=== PATIENT | male | born 1945 | race Hispanic/Latino ===

== ENCOUNTER 2021-09-06 13:08 | Emergency (ER) | payer MEDICARE, OTHER ==
[~2021-09-06] VITALS: Ht 167.6 cm; Wt 77.1 kg
[2021-09-06 14:05] LABS: BASOPHILS % 0.4 % (0.0-1.0); EOSINOPHILS # (AUTO) 0.1 (0.0-0.4); EOSINOPHILS % 1.5 % (0.0-6.0); HEMATOCRIT 32.9 % (38.2-49.6); LYMPHOCYTES # (AUTO) 0.8 (1.0-3.2); MEAN CORPUSCULAR HEMOGLOBIN 32.4 pg (28-32); MEAN CORPUSCULAR HGB CONC 33.4 g/dL (31-35); MEAN CORPUSCULAR VOLUME 96.8 fL (81-99); MONOCYTES # (AUTO) 0.5 (0.2-0.8); MONOCYTES % 7.7 % (4.4-11.3); NEUTROPHILS # (AUTO) 5.4 (2.1-6.9); PLATELET COUNT 220 x10e3/uL (140-360); RED CELL DISTRIBUTION WIDTH 13.2 % (11.7-14.4)
[2021-09-06 14:25] LABS: ALBUMIN 3.5 g/dL (3.5-5.0); ALBUMIN/GLOBULIN RATIO 0.9 (0.8-2.0); CALCIUM 9.4 mg/dL (8.4-10.2); CREATININE, SERUM 1.2 mg/dL (0.72-1.25)
== END 2021-09-06 15:02 | disposition home or self-care (01) ==
LOC: ER 13:13
DX: R55 Syncope and collapse (principal); R42 Dizziness and giddiness; W01.0XXA Fall on same level from slipping, tripping and stumbling without subsequent striking against object, initial encounter; Y93.01 Activity, walking, marching and hiking; Y92.89 Other specified places as the place of occurrence of the external cause; E11.9 Type 2 diabetes mellitus without complications; R94.31 Abnormal electrocardiogram [ECG] [EKG]
CPT/HCPCS: 36415; 70450; 71045; 80053; 84484; 85025; 93005; 99284

== ENCOUNTER → 2022-01-15 | Outpatient (CLI) | payer OTHER | LOC: US 09:07 | PROVIDERS: ATTEND Internal Medicine Medical Oncology | DX: D64.9 Anemia, unspecified (principal) | CPT/HCPCS: 76700; 76856 ==

== ENCOUNTER 2024-07-27 12:16 | Observation (INO) | payer MEDICARE, OTHER ==
[~2024-07-27] VITALS: Ht 157.5 cm; Wt 81.6 kg
[2024-07-27 13:23] VITALS: TEMP 98.4
[2024-07-27 14:14] LABS: BASOPHILS % 0.6 % (0.0-1.0); EOSINOPHILS # (AUTO) 0.1 (0.0-0.4); EOSINOPHILS % 2.1 % (0.0-6.0); HEMATOCRIT 33.8 % (38.2-49.6); HEMOGLOBIN 11.6 g/dL (14.0-18.0); LYMPHOCYTES # (AUTO) 0.7 (1.0-3.2); LYMPHOCYTES % 11.6 % (18.0-39.1); MEAN CORPUSCULAR HEMOGLOBIN 32.5 pg (28-32); MEAN CORPUSCULAR HGB CONC 34.3 g/dL (31-35); MEAN CORPUSCULAR VOLUME 94.7 fL (81-99); MONOCYTES # (AUTO) 0.5 (0.2-0.8); MONOCYTES % 8.2 % (4.4-11.3); NEUTROPHILS # (AUTO) 4.8 (2.1-6.9); NEUTROPHILS % 77.2 % (38.7-80.0); PLATELET COUNT 165 x10e3/uL (140-360); RED BLOOD COUNT 3.57 x10e6/uL (4.3-5.7); RED CELL DISTRIBUTION WIDTH 13.3 % (11.7-14.4); WHITE BLOOD COUNT 6.22 x10e3/uL (4.8-10.8)
[2024-07-27 14:44] LABS: ALBUMIN 3.7 g/dL (3.5-5.0); ALBUMIN/GLOBULIN RATIO 1.3 (0.8-2.0); ANION GAP 16.2 mmol/L (8-16); BILIRUBIN,TOTAL 0.3 mg/dL (0.2-1.2); CALCIUM 8.9 mg/dL (8.4-10.2); CLARITY,URINE CLEAR (CLEAR); COLOR,URINE YELLOW (YELLOW); CREATININE, SERUM 1.71 mg/dL (0.72-1.25); TOTAL PROTEIN 6.6 g/dL (6.5-8.1)
[2024-07-27 14:45] LABS: BILIRUBIN,URINE NEGATIVE (NEGATIVE); GLUCOSE, URINE 500 (NEGATIVE); KETONES,URINE NEGATIVE (NEGATIVE); LEUKOCYTE ESTERASE ,URINE NEGATIVE (NEGATIVE); NITRITE,URINE NEGATIVE (NEGATIVE); PH,URINE 5.5 (5 - 7); PROTEIN,URINE DIPSTICK >=300 (NEGATIVE); URINE UROBILINOGEN 0.2 mg/dL (0.2 - 1)
[2024-07-27 14:48] LABS: POTASSIUM 5.2 mmol/L (3.5-5.1)
[2024-07-27 14:58] LABS: BACTERIA,URINE RARE /HPF; RBC,URINE 0-5 /HPF (0-5); WBC,URINE (MAN) 0-5 /HPF (0-5)
[2024-07-27] MEDS: SODIUM CHLORIDE 0.9% 1000ML 1,000 ML IV SCH (15:38)
[2024-07-27] MEDS: ASPIRIN 81 MG CHEW TAB PO ONE (16:06)
[2024-07-27] MEDS ORDERED: JARDIANCE25 MG (16:14)
[2024-07-27] MEDS ORDERED: GLIPIZIDE2.5 MG (16:14)
[2024-07-27] MEDS ORDERED: ATORVASTATIN CA40 MG PO (16:14)
[2024-07-27] MEDS ORDERED: METFORMIN HCL500 MG PO (16:15)
[2024-07-27] MEDS ORDERED: ARICEPT5 MG PO (16:15)
[2024-07-27] MEDS ORDERED: LOSARTAN POTAS100 MG PO (16:15)
[2024-07-27 17:45] VITALS: PULSE 70; RESP 16; O2SAT 100
[2024-07-27 19:10] VITALS: PULSE 58; RESP 13
[2024-07-27 20:00] VITALS: BP 169/61; PULSE 61; RESP 17; TEMP 97.6; O2SAT 100
[2024-07-27 20:30] VITALS: BP 169/61; PULSE 61; RESP 17; TEMP 97.6; O2SAT 100
[2024-07-27] MEDS ORDERED: DEXTROSE 50% SYRINGE 50 ML IV PRN (20:45)
[2024-07-27] MEDS: ATORVASTATIN 40 MG TAB PO SCH (22:19)
[2024-07-27] MEDS: INSULIN REGULAR, HUMAN 100 UNIT/1 ML SQ SCH (22:33)
[2024-07-28] VITALS: BP 143/64; PULSE 61; RESP 18; TEMP 98.1; O2SAT 97
[2024-07-28 04:00] VITALS: BP 139/55; PULSE 58; RESP 17; TEMP 97.6; O2SAT 98
[2024-07-28 05:29] LABS: BASOPHILS % 0.6 % (0.0-1.0); EOSINOPHILS # (AUTO) 0.2 (0.0-0.4); EOSINOPHILS % 3.8 % (0.0-6.0); HEMATOCRIT 31.7 % (38.2-49.6); HEMOGLOBIN 10.9 g/dL (14.0-18.0); LYMPHOCYTES # (AUTO) 0.6 (1.0-3.2); MEAN CORPUSCULAR HEMOGLOBIN 32.5 pg (28-32); MEAN CORPUSCULAR HGB CONC 34.4 g/dL (31-35); MEAN CORPUSCULAR VOLUME 94.6 fL (81-99); MONOCYTES # (AUTO) 0.6 (0.2-0.8); MONOCYTES % 9.2 % (4.4-11.3); NEUTROPHILS # (AUTO) 4.8 (2.1-6.9); NEUTROPHILS % 76.1 % (38.7-80.0); PLATELET COUNT 164 x10e3/uL (140-360); RED BLOOD COUNT 3.35 x10e6/uL (4.3-5.7); RED CELL DISTRIBUTION WIDTH 13.2 % (11.7-14.4); WHITE BLOOD COUNT 6.33 x10e3/uL (4.8-10.8)
[2024-07-28 05:48] LABS: ANION GAP 14.6 mmol/L (8-16); CALCIUM 8.4 mg/dL (8.4-10.2); CREATININE, SERUM 1.6 mg/dL (0.72-1.25); POTASSIUM 4.6 mmol/L (3.5-5.1)
[2024-07-28 06:17] LABS: CHOL/HDL RATIO 5.5 (3.9-4.7)
[2024-07-28 08:11] VITALS: BP 154/88; PULSE 60; RESP 18; TEMP 98; O2SAT 98
[2024-07-28 08:12] VITALS: BP 154/88; PULSE 60; RESP 18; TEMP 98; O2SAT 98
[2024-07-28] MEDS: METFORMIN HCL 500 MG TAB PO SCH (09:15)
[2024-07-28] MEDS: LOSARTAN POTASSIUM 100 MG TAB PO SCH (09:15)
[2024-07-28 11:11] VITALS: BP 125/68; PULSE 68; RESP 18; TEMP 98.1; O2SAT 98
[2024-07-28 11:28] VITALS: BP 125/68
[2024-07-28] MEDS: HYDROCHLOROTHIAZIDE 25 MG TAB PO SCH (11:28)
[2024-07-28] MEDS: AMLODIPINE BESYLATE 10 MG TAB PO SCH (11:28)
[2024-07-28] MEDS ORDERED: NORVASC10 MG PO (14:27)
[2024-07-28] MEDS ORDERED: ATORVASTATIN CA40 MG PO (14:27)
[2024-07-28] MEDS ORDERED: ASPIRIN EC81 MG PO (14:27)
[2024-07-28] MEDS ORDERED: JANUVIA100 MG PO (14:27)
[2024-07-28] MEDS ORDERED: ESIDRIX25 MG PO (14:27)
[2024-07-28] MEDS: CLOPIDOGREL BISULFATE 75 MG TAB PO ONE (14:31)
[2024-07-28] MEDS: SITAGLIPTIN 100 MG TAB PO SCH (14:31)
[2024-07-28] MEDS: ASPIRIN 325 MG TAB EC PO ONE (14:31)
[2024-07-29] MEDS ORDERED: ASPIRIN 81 MG ENTERIC COATED PO SCH (09:00)
[2024-07-29] MEDS ORDERED: CLOPIDOGREL BISULFATE 75 MG TAB PO SCH (09:00)
== END 2024-07-28 15:15 | disposition home or self-care (01) ==
LOC: ER 13:55 → ERHOLD 15:38 → MED/SURG 20:24
PROVIDERS: ADMIT Internal Medicine; ATTEND Internal Medicine
DX: I63.9 Cerebral infarction, unspecified (principal); H53.9 Unspecified visual disturbance; R53.1 Weakness; G93.41 Metabolic encephalopathy; F01.50 Vascular dementia, unspecified severity, without behavioral disturbance, psychotic disturbance, mood disturbance, and anxiety; E11.9 Type 2 diabetes mellitus without complications; Z79.84 Long term (current) use of oral hypoglycemic drugs; I10 Essential (primary) hypertension; E78.5 Hyperlipidemia, unspecified
CPT/HCPCS: 36415 ×2; 70450; 70551; 71045; 80048; 80053; 80061; 81001; 82948 ×2; 83036; 84443; 84484; 85025 ×2; 93005; 93306; 93880; 94799; 96372; 99284; G0378 ×2; J7030